=== PATIENT | female | born 1980 | race Two or more races ===

== ENCOUNTER 2024-08-02 13:00 | Outpatient (RCR) | payer MEDICAID, SELFPAY ==
--- NOTE | 2024-07-25 15:14 | PTNOTE_ITS ---
PT OP Initial Eval Patient Information Outpatient Physical Therapy Treatment Date: 07/25/24 Visit Reasons: Pain in left knee Medical Diagnosis: Left Knee Pain Treatment Dx #1: Left Knee Pain Start of Care: 07/25/24 Smoking Status Smoking Status: Never smoker Initial Assessment Subjective: Pt is a 43 y/o female reports of chronic right knee pain (03/15) with popping and locking. Pt mention her xray showed arthritis no MRI has been done thus far. Pt has limitation with walking, standing, chores, work duties, and performing recreational activities. Objective: Right Knee AROM: 0 deg to 120 deg with pain Right Knee MMTs: grossly 3+/5 Right Hip MMTs: grossly 3/5 Special Test (+) Lillian Assessment: Pt demonstrate right knee pain with mobility deficits leading to difficulty with ADLs. Pt will attempt physical therapy if pain persist Pt will be refer back to provider for further consultation. Short Term and Intermediate Goals 1) Increase right knee AROM WNL in 6 wks to be able to perform chores 2) Decrease knee pain to 2/10 in 6 wks to be able to perform squatting activities 3) Increase right knee MMTs grossly to 4/5 in 6 wks to be able to perform recreational activities 4) Increase right hip MMTs grossly to 4-/5 in 6 wks to be able to walk more than 30 mins 5) Indep with HEP Treatment Plan 1) Manual Therapy 2) Therapeutic Activities 3) Therapeutic Exercises 4) Modalities (ice, heat) 5) Balance Training Frequency and Duration: 2 x wk for 6 wks Certification Dates: 07/25/24 to 10/25/24 Procedure Charges OP PT Eval Mod Complex 30 minutes: Yes
--- NOTE | 2024-08-02 14:08 | PT.ODAYNRPT ---
PT Outpatient Daily Note OP Daily Note Outpatient Physical Therapy Treatment Date: 08/02/24 Visit Reasons: Pain in left knee Subjective: Pt's knee is a little better. Pt does not have any concerns. Objective: Please see flow chart for list of ther ex performed Assessment: cue to pace with exercises to decrease fatigue and knee pain. Pt tolerate all exercises performed Plan: Continue with PT Length of Time (minutes) of Treatment: 30 Minutes Procedure Charges Therapeutic Exercise 30 minutes: Yes
== END 2024-08-05 23:59 | disposition home or self-care (01) ==
LOC: CPTX 13:00
PROVIDERS: PCP Nurse Practitioner Family; Referring Provider Nurse Practitioner Family; Visit Provider Nurse Practitioner Family
DX: M25.562 Pain in left knee (principal); G89.29 Other chronic pain; R26.2 Difficulty in walking, not elsewhere classified; M17.12 Unilateral primary osteoarthritis, left knee
CPT/HCPCS: 97110; 97162

== ENCOUNTER 2024-08-28 10:30 | Outpatient (RCR) | payer MEDICAID, SELFPAY ==
--- NOTE | 2024-08-07 14:46 | PT.ODAYNRPT ---
PT Outpatient Daily Note OP Daily Note Outpatient Physical Therapy Treatment Date: 08/07/24 Visit Reasons: Pain in left knee Subjective: Pt reports L knee is doing ok. Objective: Please see flow sheet for ther ex list. Assessment: Pt tolerated TG squat machine exercise with no knee pain. Plan: Continue with POC. Length of Time (minutes) of Treatment: 30 Minutes Procedure Charges Therapeutic Exercise 30 minutes: Yes
--- NOTE | 2024-08-14 14:53 | PT.ODAYNRPT ---
PT Outpatient Daily Note OP Daily Note Outpatient Physical Therapy Treatment Date: 08/14/24 Visit Reasons: Pain in left knee Subjective: Pt's knee feels better but today it's stiff due to being out in the cold ~ 4 hrs. Objective: Please see flow chart for list of ther ex performed Assessment: progressing with exercise program and added resistance to hip exercises with good tolerance Plan: Continue with PT Length of Time (minutes) of Treatment: 30 Minutes Procedure Charges Therapeutic Exercise 30 minutes: Yes
--- NOTE | 2024-08-21 14:29 | PT.ODAYNRPT ---
PT Outpatient Daily Note OP Daily Note Outpatient Physical Therapy Treatment Date: 08/21/24 Visit Reasons: Pain in left knee Subjective: Pt mention her arthritis is kicking in today and knee hurts. Objective: Please see flow chart for list of ther ex performed Assessment: tolerate exercises with minimal increase in pain Plan: Continue with PT Length of Time (minutes) of Treatment: 30 Minutes Procedure Charges Therapeutic Exercise 30 minutes: Yes
--- NOTE | 2024-08-28 10:43 | PT.ODAYNRPT ---
PT Outpatient Daily Note OP Daily Note Outpatient Physical Therapy Treatment Date: 08/28/24 Visit Reasons: Pain in left knee Subjective: Pt's knee is a little better no new concerns. Objective: Please see flow chart for list of ther ex performed Assessment: tolerate exercises with minimal pain Plan: Continue with PT Length of Time (minutes) of Treatment: 30 Minutes Procedure Charges Therapeutic Exercise 30 minutes: Yes
== END 2024-09-05 23:59 | disposition home or self-care (01) ==
LOC: CPTX 10:30
PROVIDERS: PCP Nurse Practitioner Family; Referring Provider Nurse Practitioner Family; Visit Provider Nurse Practitioner Family
DX: M25.562 Pain in left knee (principal); R26.2 Difficulty in walking, not elsewhere classified; G89.29 Other chronic pain
CPT/HCPCS: 97110

== ENCOUNTER 2024-10-05 14:00 | Outpatient (RCR) | payer MEDICAID, SELFPAY ==
--- NOTE | 2024-10-02 14:33 | PT.ODAYNRPT ---
PT Outpatient Daily Note OP Daily Note Outpatient Physical Therapy Treatment Date: 10/02/24 Visit Reasons: RIGHT KNEE PAIN Subjective: Pt reports knee continues to hurt, c/o swelling today. Objective: Please see flow sheet for ther ex list. Assessment: Interventions completed with minimal pain and soreness. Plan: Continue with POC. Length of Time (minutes) of Treatment: 30 Minutes Procedure Charges Therapeutic Exercise 30 minutes: Yes
--- NOTE | 2024-10-05 14:27 | PT.ODAYNRPT ---
PT Outpatient Daily Note OP Daily Note Outpatient Physical Therapy Treatment Date: 10/05/24 Visit Reasons: RIGHT KNEE PAIN Subjective: Pt's knee is hurting more. Pt has more difficulty putting weight through the leg in standing. Objective: Please see flow chart for list of ther ex performed Assessment: tolerate exercises performed today; cues to pace throughout PT session to decrease knee pain Plan: Continue with PT Length of Time (minutes) of Treatment: 30 Minutes Procedure Charges Therapeutic Exercise 30 minutes: Yes
== END 2024-10-06 23:59 | disposition home or self-care (01) ==
LOC: CPTX 14:00
PROVIDERS: PCP Nurse Practitioner Family; Referring Provider Nurse Practitioner Family; Visit Provider Nurse Practitioner Family
DX: M25.562 Pain in left knee (principal); R26.2 Difficulty in walking, not elsewhere classified; G89.29 Other chronic pain
CPT/HCPCS: 97110

== ENCOUNTER 2024-10-25 14:00 | Outpatient (RCR) | payer MEDICAID, SELFPAY ==
--- NOTE | 2024-10-10 14:23 | PT.ODAYNRPT ---
PT Outpatient Daily Note OP Daily Note Outpatient Physical Therapy Treatment Date: 10/10/24 Visit Reasons: left knee pain Subjective: Pt reports L knee is hurting today more than usual and feels knee is swollen. Objective: Please see flow sheet for ther ex list. Assessment: Regressed interventions to accommodate reported pain. Pt encouraged to apply cold pack at home, pt agreed. Plan: Continue with POC. Length of Time (minutes) of Treatment: 30 Minutes Procedure Charges Therapeutic Exercise 30 minutes: Yes
--- NOTE | 2024-10-12 14:40 | PT.ODAYNRPT ---
PT Outpatient Daily Note OP Daily Note Outpatient Physical Therapy Treatment Date: 10/12/24 Visit Reasons: left knee pain Subjective: Pt reports L knee continues to be painful and swollen, no pain to report. Objective: Please see flow sheet for ther ex list Assessment: Intervention progression slow due to pt pain response. Plan: Continue with POC. Length of Time (minutes) of Treatment: 30 Minutes Procedure Charges Therapeutic Exercise 30 minutes: Yes
--- NOTE | 2024-10-17 14:21 | PT.ODAYNRPT ---
PT Outpatient Daily Note OP Daily Note Outpatient Physical Therapy Treatment Date: 10/17/24 Visit Reasons: left knee pain Subjective: Pt c/o L knee pain, does not feel progress at this time. Objective: Please see flow sheet for ther ex list. Assessment: Pt continues to report moderate knee pain delaying intervention progression. Plan: Continue with pOC. Length of Time (minutes) of Treatment: 30 Minutes Procedure Charges Therapeutic Exercise 30 minutes: Yes
--- NOTE | 2024-10-19 14:25 | PT.ODAYNRPT ---
PT Outpatient Daily Note OP Daily Note Outpatient Physical Therapy Treatment Date: 10/19/24 Visit Reasons: left knee pain Subjective: Pt reports L knee is doing better today, received injections yesterday on B knees. Objective: Please see flow sheet for ther ex list. Assessment: Pt demonstrates improved tolerance with interventions today as a result of decrease pain. Plan: Continue with poC. Length of Time (minutes) of Treatment: 30 Minutes Procedure Charges Therapeutic Exercise 30 minutes: Yes
--- NOTE | 2024-10-25 14:36 | PT.ODAYNRPT ---
PT Outpatient Daily Note OP Daily Note Outpatient Physical Therapy Treatment Date: 10/25/24 Visit Reasons: left knee pain Subjective: Pt reports she continues to have on/off pain on her L knee. Pt shared she is scheduled for an MRI next week and would like next PT session to be her last. Objective: Please see flow sheet for ther ex list. Assessment: Pt c/o knee pain delaying intervention progression. Plan: Continue with POC. Length of Time (minutes) of Treatment: 30 Minutes Procedure Charges Therapeutic Exercise 30 minutes: Yes
--- NOTE | 2024-10-27 13:47 | PT.ODS1RPT ---
PT OP Progress/Discharge Note Date of Service: 10/27/24 Progress Note/DC Note Progress Note/Discharge Note: DC Note Patient Information Visit Reasons: left knee pain Service Discharge Date: 10/27/24 Status Assessment: Pt has been seen for 13 visits (eval + 12 visits). Pt last treated on 10/25/24 and will like to stopped physical therapy due to continued knee pain. Pt did not meet set goals in therapy; thank you for your referrals.
== END 2024-11-03 23:59 | disposition home or self-care (01) ==
LOC: CPTX 14:00
PROVIDERS: PCP Nurse Practitioner Family; Referring Provider Nurse Practitioner Family; Visit Provider Nurse Practitioner Family
DX: M25.562 Pain in left knee (principal); R26.2 Difficulty in walking, not elsewhere classified; G89.29 Other chronic pain
CPT/HCPCS: 97110

== ENCOUNTER → 2024-11-06 | Outpatient (CLI) | payer MEDICAID, SELFPAY ==
--- NOTE | 2024-11-06 14:41 | XR_ITS ---
Examination: Foot, right, 3 views Technique: AP, oblique, lateral views foot, 3 views Date and time of exam: November 06, 2024 1448 hours INDICATIONS: Right foot pain after injury one month ago FINDINGS: No acute fracture No dislocation No foreign body IMPRESSION: No acute fracture
== END | disposition home or self-care (01) ==
PROVIDERS: PCP Nurse Practitioner Family; Referring Provider Nurse Practitioner Family; Visit Provider Nurse Practitioner Family
DX: M79.671 Pain in right foot (principal)
CPT/HCPCS: 73630

== ENCOUNTER 2024-12-16 21:11 | Emergency (ER) | payer MEDICAID, SELFPAY ==
[2024-12-16 21:12] VITALS: BMI 39.4
--- NOTE | 2024-12-16 21:16 | EKG_ITS ---
[facility] Test Date: 2024-12-16 Pat Name: BJORN BOOTH Department: Room: - Gender: Female Client Care Consultant: : 1980 Requested By: ED Temporary Provider Order Number: [id number] Reading MD: ED Temporary Provider Measurements Intervals [place] Rate: 79 P: 23 GA: 158 QRS: 37 QRSD: 83 T: 8 QT: 355 QTc: 409 Interpretive Statements SINUS RHYTHM NONSPECIFIC T-WAVE ABNORMALITY No previous ECG available for comparison /store/S0/[id number].pdf
[2024-12-16 21:19] VITALS: BP 113/75; PULSE 84; RESP 19; TEMP 36.6; O2SAT 99
--- NOTE | 2024-12-16 21:19 | XR_ITS ---
Examination: PA lateral chest 2 views Technique: Upright PA lateral chest 2 views Exam date and time: December 16, 2024 2130 hrs. Comparison February 28, 2006 Indications: Tachycardia chest pain beginning 2 weeks ago. Findings: Mild prominence left ventricle No pneumonia or pulmonary edema Old fracture right clavicle Impression: Mild prominence left ventricle No pneumonia or pulmonary edema
--- NOTE | 2024-12-16 21:22 | PD.EDRME ---
Rapid Medical Screening Exam RME Arrival date/time: 12/16/24 21:11 44 yo f present to ED for c/o rapid hr for 2 weeks I have greeted and performed a focused initial assessment of this patient. A comprehensive ED assessment and evaluation of the patient, analysis of all test results, and completion of the medical decision making process will be conducted by additional ED providers. Chief Complaint: Arrhythmia/Palpitations Vital signs: Vital Signs Temperature 98 F 12/16/24 21:19 Pulse Rate 84 12/16/24 21:19 Respiratory Rate 19 12/16/24 21:19 Blood Pressure 113/75 12/16/24 21:19 Pulse Oximetry (%) 99 12/16/24 21:19 Oxygen Delivery Method Room Air 12/16/24 21:19
[2024-12-16 21:42] LABS: Basophils % (Auto) 0 % (0-2.5); Eosinophils # (Auto) 0.1 Thou/mm3 (0.0-0.5); Eosinophils % (Auto) 1 % (0-10); Hematocrit 44.5 % (36.0-46.0); Hemoglobin 14.6 g/dL (12.0-16.0); Immature Granulocytes % (Auto) 0 % (0-0); Immature Granulocytes Auto 0.04 Thou/mm3 (0.00-0.00); Lymphocytes # (Auto) 2.5 Thou/mm3 (1.0-4.8); Lymphocytes % (Auto) 20 % (10-50); Mean Corpuscular HGB Conc 32.8 g/dl (31.0-37.0); Mean Corpuscular Hemoglobin 32.6 pg (25.0-35.0); Mean Corpuscular Volume 99 fL (80-100); Monocytes # (Auto) 0.8 Thou/mm3 (0.0-0.8); Monocytes % (Auto) 6 % (0-12); Neutrophils # (Auto) 9.1 Thou/mm3 (1.8-7.7); Neutrophils % (Auto) 72 % (37-80); Nucleated Red Blood Cell % 0 /100 WBC (0); Platelet Count 312 Thou/mm3 (140-440); RDW Standard Deviation 55.2 fL (36.4-46.3); Red Blood Count 4.48 Miln/mm3 (4.00-5.20); White Blood Count 12.7 Thou/mm3 (3.6-11.0)
[2024-12-16 22:11] LABS: HCG,Qualitative Serum Negative
[2024-12-16 22:12] LABS: Alanine Aminotransferase 18 U/L (10-49); Albumin, Serum 4.6 gm/dL (3.5-5.0); Albumin/Globulin Ratio 1.8 (1.2-2.2); Alkaline Phosphatase 62 U/L (46-116); Anion Gap 9 (7-16); Aspartate Amino Transferase 15 U/L (0-34); BUN/Creatinine Ratio 15 Ratio (12-20); Bilirubin,Total 0.7 mg/dL (0.3-1.2); Blood Urea Nitrogen 12 mg/dL (9-23); Calcium 9.3 mg/dL (8.3-10.6); Calcium (Corrected) 9.3 mg/dL (8.5-10.1); Carbon Dioxide 26.2 mMol/L (20.0-31.0); Chloride 110 mMol/L (98-107); Creatinine (Component) 0.8 mg/dL (0.6-1.3); Estimated Creatinine Clearance 105.6 mL/min (>60); Globulin 2.5 gm/dL (2.3-3.5); Glucose 111 mg/dL (74-106); Magnesium 2.3 mg/dL (1.6-2.6); Osmolality,Calculated 289 (275-295); Potassium 3.7 mMol/L (3.4-5.1); Sodium 145 mMol/L (136-145); Total Protein 7.1 gm/dL (5.7-8.2); Troponin I < 0.002 ng/mL (0.0-0.045); eGFR > 60 See Note
[2024-12-16 22:13] LABS: Thyroid Stimulating Hormone 2.05 uIU/mL (0.55-4.78)
[2024-12-17] VITALS: BP 130/88; PULSE 76; RESP 18; O2SAT 100
--- NOTE | 2024-12-17 00:05 | PC.NURSE ---
Initial contact with pt. Awake no distress noted. Denies any chest discomfort at this time. Pt stated of and on having palpitation for about 2 wks. C. monitor shows NSR without ventricular ectopy noted.
--- NOTE | 2024-12-17 00:55 | EDNOTE_ITS ---
ED Arrhythmia Palp. RME/HPI General Chief Complaint: Arrhythmia/Palpitations Stated Complaint: palpitations Time Seen by Provider: 12/16/24 21:27 Arrival date/time: 12/16/24 21:11 Limitations: no limitations RME / HPI RME / HPI narrative: 12/16/24 21:11 44 yo f present to ED for c/o rapid hr for 2 weeks I have greeted and performed a focused initial assessment of this patient. A comprehensive ED assessment and evaluation of the patient, analysis of all test results, and completion of the medical decision making process will be conducted by additional ED providers. -------- Dr. Goyal's Main ED Evaluation: 44yo female presents to the ED for a chief complaint of palpitations. Patient states she was having palpitations and sharp chest pain today. She states she has been on Zepbound for the last 6 months and has lost 30 pounds. She endorses associated tingling everywhere. She denies any fever, chills, N/V, numbness or any other associated symptoms. Related Data Home Medications ?Medication ?Instructions ?Recorded ?Confirmed albuterol sulfate 90 mcg/actuation 2 puff inhalation Q 4H PRN 08/26/23 02/18/24 aerosol inhaler cetirizine 10 mg tablet 10 mg PO QDAY 08/26/2302/17 fluticasone propionate 50 2 inh inhalation QDAY 02/18/24 mcg/actuation blister powder for inhalation levothyroxine 75 mcg capsule 75 mcg PO QDAY 08/26/23 0 02/18/24 atorvastatin 10 mg tablet 10 mg PO QDAY 02/18/2402/17 oxybutynin chloride 10 mg 10 mg PO QDAY 02/18/2402/17 tablet,extended release 24 hr Previous Rx's ?Medication ?Instructions ?Recorded ibuprofen 800 mg tablet 800 mg PO TID PRN pain #30 t abs 02/16/24 loperamide 2 mg capsule (Imodium 2 mg PO Q6H PRN loose stool #14 02/16/24 A-D) caps ondansetron 4 mg disintegrating 4 mg PO Q8H PRN nausea and 02/16/24 tablet vomiting #10 tabs Allergies Allergy/AdvReac Type Severity Reaction Status Date / Time No Known Allergies Allergy Verified 12/16/24 21:15 Review of Systems Review of Systems Systems Reviewed: All systems reviewed, normal except as documented Past Medical History Past Medical History NEUROLOGIC: Negative Neurological Disorders CARDIAC: Negative Cardiac Disorders or Congestive Heart Failure RESPIRATORY: Negative Chronic Obstructive Pulmonary Disease (COPD) GENITOURINARY: Negative Renal Disease ENDOCRINE: Negative Diabetes Mellitus Type 1 or Diabetes Mellitus Type 2 Social History SMOKING STATUS: Never smoker ED Exam General Limitations: Present no limitations General appearance: Present alert and in no apparent distress Head Head exam: Present atraumatic Eye Eye exam: Present normal appearance, PERRL and EOMI ENT ENT exam: Present normal exam, normal oropharynx and mucous membranes moist Neck Neck exam: Present normal inspection, full ROM and trachea midline Chest Chest inspection: Present normal inspection and symmetric chest wall rise Respiratory Respiratory exam: Present normal lung sounds bilaterally Cardiovascular Cardiovascular exam: Present regular rate, normal rhythm and normal heart sounds Abdominal Exam Abdominal exam: Present soft and normal bowel sounds Extremities Exam Extremities exam: Present normal inspection and full ROM Back Exam Back exam: Present normal inspection and full ROM Neurological Exam Neurological exam: Present alert, oriented X3, CN II-XII intact and other (normal netsuite consultant bilaterally) Expanded Neurological Exam Cerebellar function: Normal: finger to nose Psychiatric Psychiatric exam: Present normal affect and normal mood Skin Skin exam: Present warm, dry, intact and normal color Course Course Course Narrative: CXR is ordered for determining the etiology of palpitations. Quality Measures none Orders Category Date Time Status EKG (ED ONLY) *Do not use* NOW Care 12/16/24 21:16 Completed EKG (ED Only) Stat Exams 12/16/24 21:16 Draft XR chest 2V Stat Exams 12/16/24 21:19 Completed CBC Stat Lab 12/16/24 21:27 Completed CMP [Comprehensive Metabolic Panel] Stat Lab 12/16/24 21:27 Completed HCG,Qualitative Serum Stat Lab 12/16/24 21:27 Completed Mag [Magnesium] Stat Lab 12/16/24 21:27 Completed TSH [Thyroid Stimulating Hormone] Stat Lab 12/16/24 21:27 Completed Troponin I Stat Lab 12/16/24 21:27 Completed Vital Signs Vital signs: Vital Signs Temperature 98 F 12/16/24 21:19 Pulse Rate 84 12/16/24 21:19 Respiratory Rate 19 12/16/24 21:19 Blood Pressure 113/75 12/16/24 21:19 Pulse Oximetry (%) 99 12/16/24 21:19 Oxygen Delivery Method Room Air 12/16/24 21:19 Arrhythmia/Palpitations MDM Narrative MDM Narrative:: Scribe Attestation: 12/16/24 - Elsa Finley am scribing for and in the presence of Dr. Goyal. Patient data External records reviewed:: [facility] previous records (Per chart review, patient has no previous ED visits.) Clinical information provided by:: patient Social determinants that could affect healthcare access:: none Patient has the following chronic illnesses:: none How is presenting disease/condition affected by chronic disease/condition?: no chronic disease Evaluation data The following diagnostics were reviewed and interpreted by me:: lab results, radiology exam(s) and EKG tracing(s) Lab and/or radiology exams considered but not ordered:: none Interpretation Summary: WBC count is 12.7, CMP is normal, Magnesium is normal, Troponin is normal, TSH is normal, HCG is negative, according to my interpretation. EKG done at 2123. NSR, rate of 79, normal intervals, normal axis, no acute ST or T wave changes, no STEMI, according to my interpretation. [facility] Report Signed Patient: BJORN BOOTH Record#: [id number] Birthdate: 1980 Age/Sex: 44 / F Location: [facility] [place] Attending Dr: Ordering Physician: Galindo Richard PA-C Date of Service: 12/16/24 Procedure(s): XR chest 2V Accession Number(s): [id number] cc: Watson Barros MD; NO PRIMARY/FAMILY,PHYSICIAN; Galindo Richard PA-C~ Examination: PA lateral chest 2 views Technique: Upright PA lateral chest 2 views Exam date and time: December 16, 2024 2130 hrs. Comparison February 28, 2006 Indications: Tachycardia chest pain beginning 2 weeks ago. Findings: Mild prominence left ventricle No pneumonia or pulmonary edema Old fracture right clavicle Impression: Mild prominence left ventricle No pneumonia or pulmonary edema Dictated By: Watson Barros MD Signed By: <Electronically signed by Watson Barros MD in OV> 12/16/247 Medications / Prescriptions Medications or Prescriptions considered but not ordered:: none Medication administrations:: see above Consultations Consultation(s) initiated? (list below): No Diagnosis Differential diagnosis arrhythmia/palpitations: palpitations, anxiety, sinus tachycardia and other (dehydration, electrolyte abnormality, medication side effect) Most likely diagnosis given after review of the tests above:: see clinical impression below Admission Indicated Admission indicated?: not indicated Admission Request Was there a request for admission?: No Disposition Plan Disposition Plan: Discharge Discharge Attestation Discharge Attestation: The patient and all family members were given an opportunity to ask questions and understood the discharge instructions. Discharge instructions specifically effects, indications for sooner follow up or return to the emergency department, and the expected course of current diagnosis. Patient condition: Stable Discharge Plan Plan Patient Disposition: HOME (Self Care) Patient condition on transfer: Stable Prescriptions/Referrals Prescriptions/Med Rec: No Action atorvastatin 10 mg tablet 10 mg PO QDAY oxybutynin chloride 10 mg tablet extended release 24hr 10 mg PO QDAY albuterol sulfate 90 mcg/actuation HFA aerosol inhaler 2 puff inhalation Q4H PRN fluticasone propionate 50 mcg/actuation blister with device 2 inh inhalation QDAY cetirizine 10 mg tablet 10 mg PO QDAY levothyroxine 75 mcg capsule 75 mcg PO QDAY loperamide [Imodium A-D] 2 mg capsule 2 mg PO Q6H PRN (Reason: loose stool) Qty: 14 0RF ibuprofen 800 mg tablet 800 mg PO TID PRN (Reason: pain) Qty: 30 0RF ondansetron 4 mg tablet,disintegrating 4 mg PO Q8H PRN (Reason: nausea and vomiting) Qty: 10 0RF Referrals: No Primary/Family,Physician [Primary Care Provider] - In 1 week Problem List Clinical Impression: Palpitations Patient/Caregiver Discharge Instructions Education Materials: ED Palpitations Additional Instructions: Return to the ED for worsening symptoms or any other concerns. Take [id number] vitamins in case you are not getting enough nutrition since you are on the weight loss drug. Please see your primary care in the next 48 to 72 hours. Print Language: Kyrgyz Stand Alone Forms: Monae Award Info., Patient Portal Info Letter
[2024-12-17 01:34] VITALS: BP 109/83; PULSE 74; RESP 18; TEMP 36.6; O2SAT 100
== END 2024-12-17 01:45 | disposition home or self-care (01) ==
PROVIDERS: Physician Assistant; Emergency Provider Emergency Medicine
DX: I51.7 Cardiomegaly (principal)
CPT/HCPCS: 36415; 71046; 80053; 83735; 84443; 84484; 84703; 85025; 93005; 99283

== ENCOUNTER → 2025-01-05 | Outpatient (CLI) | payer MEDICAID, SELFPAY ==
--- NOTE | 2025-01-05 14:09 | XR_ITS ---
Examination: Carotid arterial duplex scan, ultrasound. Date and time of exam: January 05, 2025 1423 hours INDICATIONS: Episodes of dizziness facial weakness left-sided body weakness beginning 2 months ago, transient ischemic attacks Technique: Multiple sonographic images have been obtained of the carotid arteries and vertebral arteries, B-mode/grayscale imaging and Doppler spectral analysis and color flow Peak systolic and diastolic velocities have been recorded. Systolic diastolic ratios have been calculated. Findings: Right peak systolic velocities: Distal internal carotid artery peak systolic velocity is 0.7 M/sec Proximal internal carotid artery peak systolic velocity is 0.5 M/sec Carotid bifurcation peak systolic velocity is 0.8 M/sec External carotid artery peak systolic velocity is 0.8 M/sec Vertebral artery flow is antegrade. Left peak systolic velocities: Distal internal carotid artery peak systolic velocity is 1.0 M/sec Proximal internal carotid artery peak systolic velocity is 1.0 M/sec Carotid bifurcation peak systolic velocity is 0.7 M/sec External carotid artery peak systolic velocity is 0.7 M/sec Vertebral artery flow is antegrade Doppler waveform analysis demonstrates no spectral broadening Impression: Right internal carotid artery demonstrates 0-10% stenosis. Left internal carotid artery demonstrates 0-10% stenosis.
== END | disposition home or self-care (01) ==
LOC: CDIM 14:01
PROVIDERS: PCP Nurse Practitioner Family; Referring Provider Nurse Practitioner Family; Visit Provider Nurse Practitioner Family
DX: R42 Dizziness and giddiness (principal)
CPT/HCPCS: 93880

== ENCOUNTER → 2025-02-16 | Outpatient (BNVA) | payer MEDICAID, SELFPAY | END | disposition home or self-care (01) | PROVIDERS: PCP Nurse Practitioner Family; Referring Provider Nurse Practitioner Family; Visit Provider Urology | DX: N39.46 Mixed incontinence (principal); N32.81 Overactive bladder; E03.9 Hypothyroidism, unspecified; F31.9 Bipolar disorder, unspecified; J45.909 Unspecified asthma, uncomplicated; E78.5 Hyperlipidemia, unspecified; R73.03 Prediabetes; E66.9 Obesity, unspecified; Z68.38 Body mass index [BMI] 38.0-38.9, adult | CPT/HCPCS: 81003; 99212; G0463 ==

== ENCOUNTER 2025-03-19 18:19 | Emergency (ER) | payer MEDICAID, SELFPAY ==
[2025-03-19 18:37] VITALS: BP 148/80; PULSE 73; RESP 19; TEMP 37; O2SAT 98; BMI 37.5
--- NOTE | 2025-03-19 19:41 | EKG_ITS ---
[facility] Test Date: 2025-03-19 Pat Name: BJORN BOOTH Department: Room: - Gender: Female Transportation Technician: : 1980 Requested By: Anish Rodriguez Order Number: [id number] Reading MD: Anish Rodriguez Measurements Intervals [place] Rate: 66 P: 18 OK: 151 QRS: 43 QRSD: 90 T: 21 QT: 380 QTc: 398 Interpretive Statements SINUS RHYTHM NONSPECIFIC T-WAVE ABNORMALITY Compared to ECG 12/16/2024 21:24:31 No significant changes /store/S0/[id number]/[id number].pdf
--- NOTE | 2025-03-19 19:43 | XR_ITS ---
Examination: PA chest single view TECHNIQUE: upright PA chest single view Date and time: March 19, 2025, 194 hours INDICATION: Chest pain 6 months FINDINGS: Minimal prominence left ventricle. No pneumonia or pulmonary edema. Old fracture right clavicle IMPRESSION: No active disease.
[2025-03-19 20:55] LABS: Basophils # (Auto) 0.0 Thou/mm3 (0.0-0.2); Basophils % (Auto) 0 % (0-2.5); Eosinophils # (Auto) 0.3 Thou/mm3 (0.0-0.5); Eosinophils % (Auto) 3 % (0-10); Hematocrit 42.2 % (36.0-46.0); Hemoglobin 13.8 g/dL (12.0-16.0); Immature Granulocytes Auto 0.02 Thou/mm3 (0.00-0.00); Lymphocytes # (Auto) 2.6 Thou/mm3 (1.0-4.8); Lymphocytes % (Auto) 24 % (10-50); Mean Corpuscular HGB Conc 32.7 g/dl (31.0-37.0); Mean Corpuscular Hemoglobin 32.9 pg (25.0-35.0); Mean Corpuscular Volume 101 fL (80-100); Monocytes # (Auto) 0.6 Thou/mm3 (0.0-0.8); Monocytes % (Auto) 6 % (0-12); Neutrophils # (Auto) 7.2 Thou/mm3 (1.8-7.7); Neutrophils % (Auto) 67 % (37-80); Nucleated Red Blood Cell # 0.00 Thou/mm3 (0.00-0.00); Nucleated Red Blood Cell % 0 /100 WBC (0); Platelet Count 221 Thou/mm3 (140-440); RDW Standard Deviation 49.9 fL (36.4-46.3); Red Blood Count 4.20 Miln/mm3 (4.00-5.20); White Blood Count 10.7 Thou/mm3 (3.6-11.0)
[2025-03-19 21:17] LABS: Collection Type, Urine Voided
[2025-03-19 21:18] LABS: B-Type Natriuretic Peptide 36 pg/mL (0-100)
[2025-03-19 21:23] LABS: Alanine Aminotransferase 15 U/L (10-49); Albumin, Serum 4.4 gm/dL (3.5-5.0); Albumin/Globulin Ratio 1.8 (1.2-2.2); Alkaline Phosphatase 70 U/L (46-116); Anion Gap 11 (7-16); Aspartate Amino Transferase 17 U/L (0-34); BUN/Creatinine Ratio 9 Ratio (12-20); Bilirubin,Total 0.5 mg/dL (0.3-1.2); Blood Urea Nitrogen 7 mg/dL (9-23); Calcium 9.2 mg/dL (8.3-10.6); Calcium (Corrected) 9.2 mg/dL (8.5-10.1); Carbon Dioxide 23.8 mMol/L (20.0-31.0); Chloride 107 mMol/L (98-107); Creatinine (Component) 0.8 mg/dL (0.6-1.3); Estimated Creatinine Clearance 102.8 mL/min (>60); Globulin 2.5 gm/dL (2.3-3.5); Glucose 102 mg/dL (74-106); Osmolality,Calculated 281 (275-295); Potassium 3.8 mMol/L (3.4-5.1); Sodium 142 mMol/L (136-145); Thyroid Stimulating Hormone 3.18 uIU/mL (0.55-4.78); Total Protein 6.9 gm/dL (5.7-8.2); Troponin I < 0.002 ng/mL (0.0-0.045); eGFR > 60 See Note
[2025-03-19 21:34] LABS: Bacteria,Urine 1+; Bilirubin,Urine Negative (Negative); Blood,Urine Trace (Negative); Clarity,Urine Turbid (Clear/Hazy); Color,Urine Yellow (Lt Yel-Yel); Glucose, Urine Negative (Negative); Hyaline Casts,Urine < 1 /hpf (0-1); Ketones,Urine Trace (Negative); Leukocyte Esterase,Urine Positive (Negative); Nitrite,Urine Negative (Negative); PH,Urine 6.0 (5.0-7.0); Protein,Urine 1+ (Neg - Trace); RBC,Urine 8 /hpf (0-3); Specific Gravity,Urine 1.032 (1.001-1.035); Squamous Epithelial Cell,Urine 13 /hpf (0-5); Urobilinogen,Urine 2.0 mg/dL (0.0-1.0); WBC,Urine 20 /hpf (0-5)
[2025-03-19 21:35] LABS: HCG Qualitative,Urine Negative
--- NOTE | 2025-03-19 22:00 | PD.EDARRY ---
ED Arrhythmia Palp. RME/HPI General Chief Complaint: Arrhythmia/Palpitations Stated Complaint: DO X 2 days, palpitations today Time Seen by Provider: 03/19/25 18:31 Arrival date/time: 03/19/25 18:19 This is a case of a 44-year-old female with history of palpitation came in in the emergency room with chest pain and palpitation today with mild frontal headache patient states that she was in the clinic to have Toradol injection for his lower back pain when they checked the heart rate it was high and started to have chest pain and some frontal headache patient denies any shortness of breath denies any other symptoms denies any numbness weakness tingling sensation denies blurring of vision persistence of the symptoms this patient decided to sought consult here in the emergency room Limitations: no limitations Related Data Home Medications ?Medication ?Instructions ?Recorded ?Confirmed albuterol sulfate 90 mcg/actuation 2 puff inhalation Q4H PRN 08/26/23 02/16/25 aerosol inhaler cetirizine 10 mg tablet 10 mg PO QDAY 08/26/23 02/16/25 fluticasone propionate 50 2 inh inhalation QDAY 08/26/23 02/16/25 mcg/actuation blister powder for inhalation levothyroxine 75 mcg capsule 75 mcg PO QDAY 08/26/23 02/16/25 atorvastatin 10 mg tablet 10 mg PO QDAY 02/18/24 02/16/25 oxybutynin chloride 10 mg 10 mg PO QDAY 02/18/24 02/16/25 tablet,extended release 24 hr acetaminophen 500 mg capsule 500 mg PO BID PRN 02/16/25 02/16/25 lithium carbonate 600 mg capsule 1,200 mg PO QDAY 02/16/25 02/16/25 trazodone 50 mg tablet 50 mg PO BID 02/16/25 02/16/25 Previous Rx's ?Medication ?Instructions ?Recorded cephalexin 500 mg capsule 500 mg PO QID 10 days #40 caps 03/19/25 Allergies Allergy/AdvReac Type Severity Reaction Status Date / Time No Known Allergies Allergy Verified 03/19/25 18:25 Review of Systems Review of Systems Systems Reviewed: All systems reviewed, normal except as documented Constitutional Constitutional: Reports system reviewed and no additional complaints, except as documented and Reports as per HPI Cardiovascular Cardiovascular: Reports system reviewed and no additional complaints, except as documented, Denies chest pain and Denies dyspnea Respiratory Respiratory: Reports system reviewed and no additional complaints, except as documented, Reports as per HPI and Denies dyspnea Gastrointestinal Gastrointestinal: Reports system reviewed and no additional complaints, except as documented and Reports as per HPI Neurologic Neurologic: Reports as per HPI Past Medical History Past Medical History NEUROLOGIC: Negative Neurological Disorders CARDIAC: Negative Cardiac Disorders or Congestive Heart Failure RESPIRATORY: Negative Chronic Obstructive Pulmonary Disease (COPD) GENITOURINARY: Negative Renal Disease ENDOCRINE: Negative Diabetes Mellitus Type 1 or Diabetes Mellitus Type 2 Social History SMOKING STATUS: Never smoker ED Exam General Limitations: Present no limitations General appearance: Present alert, in no apparent distress and other (Awake alert oriented not in distress nontoxic looking) Head Head exam: Present atraumatic, normocephalic and normal inspection Eye Eye exam: Present normal appearance, PERRL and EOMI ENT ENT exam: Present normal exam, normal oropharynx and mucous membranes moist Neck Neck exam: Present normal inspection, full ROM and trachea midline Chest Chest inspection: Present normal inspection and symmetric chest wall rise Respiratory Respiratory exam: Present normal lung sounds bilaterally; Absent respiratory distress, wheezes, stridor, accessory muscle use or prolonged expiratory phase Cardiovascular Cardiovascular exam: Present regular rate, normal rhythm and normal heart sounds; Absent bradycardia, tachycardia, irregular rhythm, systolic murmur or diastolic murmur Abdominal Exam Abdominal exam: Present soft and normal bowel sounds; Absent distention, tenderness, guarding, rebound, rigidity, diminished bowel sounds, hyperactive bowel sounds or hypoactive bowel sounds Extremities Exam Extremities exam: Present normal inspection and full ROM Back Exam Back exam: Present normal inspection and full ROM Neurological Exam Neurological exam: Present alert, oriented X3, CN II-XII intact, normal gait and reflexes normal; Absent motor sensory deficit Psychiatric Psychiatric exam: Present normal affect and normal mood Skin Skin exam: Present warm, dry, intact and normal color Course Quality Measures none Orders Category Date Time Status EKG (ED ONLY) *Do not use* NOW Care 03/19/25 19:42 Completed EKG (ED Only) Stat Exams 03/19/25 19:41 Draft XR chest 1V portable Stat Exams 03/19/25 19:43 Completed BNP [B-Type Natriuretic Peptide] Stat Lab 03/19/25 20:25 Completed CBC Stat Lab 03/19/25 20:25 Completed CMP [Comprehensive Metabolic Panel] Stat Lab 03/19/25 20:25 Completed HCG Qualitative,Urine Stat Lab 03/19/25 21:08 Completed TSH [Thyroid Stimulating Hormone] Stat Lab 03/19/25 20:25 Completed Troponin I Stat Lab 03/19/25 20:25 Completed Urinalysis Stat Lab 03/19/25 21:08 Completed Vital Signs Vital signs: Vital Signs Temperature 98.6 F 03/19/25 18:37 Pulse Rate 73 03/19/25 18:37 Respiratory Rate 19 03/19/25 18:37 Blood Pressure 148/80 H 03/19/25 18:37 Pulse Oximetry (%) 98 03/19/25 18:37 Oxygen Delivery Method Room Air 03/19/25 18:37 Patient is afebrile not tachycardic not tachypneic BP stable not hypoxic oxygen saturation is 98% in room air Arrhythmia/Palpitations MDM Narrative MDM Narrative:: This is a case of a 44-year-old female with history of palpitation came in in the emergency room with chest pain and palpitation today with mild frontal headache patient states that she was in the clinic to have Toradol injection for his lower back pain when they checked the heart rate it was high and started to have chest pain and some frontal headache patient denies any shortness of breath denies any other symptoms denies any numbness weakness tingling sensation denies blurring of vision persistence of the symptoms this patient decided to sought consult here in the emergency room physical examination patient is awake alert oriented not in distress nontoxic looking vital signs stable BP stable not tachycardic not tachypneic not hypoxic lungs sound is clear no crackles no rales no retraction no stridor heart normal rate regular rhythm no murmur abdomen soft no guarding no rebound no rigidity neurological exam is also normal blood test showed no leukocytosis no anemia kidney and liver function is normal no electrolyte imbalance troponin is negative BNP is negative EKG shows sinus rhythm 66 chest x-ray is normal urinalysis shows urinary tract infection this patient was treated with cephalexin for UTI patient will follow-up with PCP in 2 days for reevaluation and to be referred to vendor management specialist for further evaluation and treatment of chest pain and palpitation for any worsening symptoms recurrence persisting or any emergent concern return precaution was advised Patient was discharged with comfortable condition walking with stable gait. Patient verbalized no further complains explained diagnosis and answered patient question. Patient is comfortable with the proposed management plan including the need to follow up with his/her primary care physician and any specialist if applicable Discussed patient for any urgent condition or worsening sx, He/She needed to go to emergency room immediately or call 911. Patient acknowledge the responsibility to follow up as instructed and to monitor her/his symptoms. For any persistence of the symptoms for more than 3-5 days return precaution advised. Discussed the result of the test and was given printed discharge instruction Patient data External records reviewed:: [facility] previous records Clinical information provided by:: patient Social determinants that could affect healthcare access:: none Patient has the following chronic illnesses:: None How is presenting disease/condition affected by chronic disease/condition?: no chronic disease Evaluation data The following diagnostics were reviewed and interpreted by me:: lab results, radiology exam(s) and EKG tracing(s) Lab and/or radiology exams considered but not ordered:: Reviewed Interpretation Summary: Reviewed Medications / Prescriptions Medications or Prescriptions considered but not ordered:: Given Medication administrations:: Given Consultations Consultation(s) initiated? (list below): No Diagnosis Differential diagnosis arrhythmia/palpitations: palpitations, anxiety and sinus tachycardia Most likely diagnosis given after review of the tests above:: Palpitation Admission Indicated Admission indicated?: not indicated Explain why admission is indicated or not indicated:: Not indicated Admission Request Was there a request for admission?: No Admission Attestation Admission request attestation: Not indicated Disposition Plan Disposition Plan: Discharge Discharge Attestation Discharge Attestation: The patient and all family members were given an opportunity to ask questions and understood the discharge instructions. Discharge instructions specifically effects, indications for sooner follow up or return to the emergency department, and the expected course of current diagnosis. Patient condition: Stable Discharge Plan Plan Patient Disposition: HOME (Self Care) Patient condition on transfer: Stable Prescriptions/Referrals Prescriptions/Med Rec: New cephalexin 500 mg capsule 500 mg PO QID 10 Days Qty: 40 0RF No Action atorvastatin 10 mg tablet 10 mg PO QDAY oxybutynin chloride 10 mg tablet extended release 24hr 10 mg PO QDAY acetaminophen 500 mg capsule 500 mg PO BID PRN lithium carbonate 600 mg capsule 1,200 mg PO QDAY trazodone 50 mg tablet 50 mg PO BID albuterol sulfate 90 mcg/actuation HFA aerosol inhaler 2 puff inhalation Q4H PRN fluticasone propionate 50 mcg/actuation blister with device 2 inh inhalation QDAY cetirizine 10 mg tablet 10 mg PO QDAY levothyroxine 75 mcg capsule 75 mcg PO QDAY Referrals: Kwabena([facility])Drew NP [Primary Care Provider] - In 1 week Problem List Clinical Impression: Chest pain of unknown etiology, Palpitation, Urinary tract infection Patient/Caregiver Discharge Instructions Education Materials: Understanding Urinary Tract ..., ED Chest Pain, Uncertain Cause, ED Palpitations Additional Instructions: Follow-up with your primary care physician in 2 days for reevaluation and to be referred to vendor management specialist for further evaluation and treatment of chest pain palpitation for possible echocardiogram stress test and Holter monitor persistent recurrence worsening symptoms or any emergent concern call 911 or go to the nearest emergency room keep hydrated finish the course of antibiotic Print Language: Ma[place] Stand Alone Forms: Monae Award Info., Patient Portal Info Letter PA/ACCOUNT TECHNICIAN Supervising Physician PA/ACCOUNT TECHNICIAN Supervising Physician: Dr contreras
== END 2025-03-19 22:18 | disposition home or self-care (01) ==
PROVIDERS: Nurse Practitioner Family; Emergency Provider Emergency Medicine; PCP Nurse Practitioner Family
DX: R07.9 Chest pain, unspecified (principal); N39.0 Urinary tract infection, site not specified; R00.2 Palpitations; R94.31 Abnormal electrocardiogram [ECG] [EKG]
CPT/HCPCS: 36415; 71045; 80053; 81001; 81025; 83880; 84443; 84484; 85025; 93005; 99284

== ENCOUNTER → 2025-06-15 | Outpatient (CLI) | payer MEDICAID, SELFPAY ==
--- NOTE | 2025-06-15 09:15 | XR_ITS ---
Examination: Screening digital mammography, bilateral Computer aided detection 3-D breast Tomosynthesis, bilateral Date and time of exam: June 15, 2025, 0818 hours, compared to mammograms dating to April 23, 2023 Indication: Screening Technique: Nonmagnified MLO, CC views of the breasts to been obtained, reconstructed from 3-D Tomosynthesis images. R2 computer aided detection program utilized for evaluation of suspicious masses and/or abnormal calcifications. 3-D Tomosynthesis images obtained. Findings: The breasts are heterogeneously dense, which may obscure small masses Benign calcifications. No interval suspicious masses Impression: BI-RADS category II: Benign Findings. Recommend 1 year follow-up mammogram. Given the focal asymmetries on prior studies, recommend repeat bilateral breast sonography follow-up
== END | disposition home or self-care (01) ==
LOC: CDIM 08:09
PROVIDERS: Referring Provider Nurse Practitioner Family; Visit Provider Nurse Practitioner Family
DX: Z12.31 Encounter for screening mammogram for malignant neoplasm of breast (principal); R92.323 Mammographic fibroglandular density, bilateral breasts; N64.89 Other specified disorders of breast
CPT/HCPCS: 77063; 77067

== ENCOUNTER → 2025-06-26 | Outpatient (BNVA) | payer MEDICAID, SELFPAY | END | disposition home or self-care (01) | PROVIDERS: PCP Nurse Practitioner Family; Referring Provider Nurse Practitioner Family; Visit Provider Urology | DX: R35.0 Frequency of micturition (principal); R33.9 Retention of urine, unspecified; N76.0 Acute vaginitis; M54.30 Sciatica, unspecified side; E66.9 Obesity, unspecified; Z68.37 Body mass index [BMI] 37.0-37.9, adult | CPT/HCPCS: 81003; 99212; G0463 ==

== ENCOUNTER → 2025-08-14 | Outpatient (CLI) | payer MEDICAID, SELFPAY ==
--- NOTE | 2025-08-14 14:30 | XR_ITS ---
Examination: Breast ultrasound complete, bilateral Date and time of exam: August 14, 2025, 1429 hours INDICATIONS: Right breast pain beginning 2 months ago Technique: Real-time grayscale ultrasonographic imaging bilateral breasts, including all 4 quadrants as well as nipple retroareolar and axillary regions. Findings: Sonographic images right breast 11:00 nodule 5 x 9 mm indistinct margins Sonographic images left breast No cystic or solid mass IMPRESSION: BI-RADS Category 4: Suspicious for malignancy Suspicious mass 11 o'clock position right breast, biopsy is needed to exclude breast carcinoma, this nodule is amenable to ultrasound-guided breast biopsy for diagnosis
== END | disposition home or self-care (01) ==
LOC: CDIM 14:12
PROVIDERS: PCP Nurse Practitioner Family; Referring Provider Nurse Practitioner Family; Visit Provider Nurse Practitioner Family
DX: N63.11 Unspecified lump in the right breast, upper outer quadrant (principal)
CPT/HCPCS: 76641

== ENCOUNTER → 2025-08-21 | Outpatient (CLI) | payer MEDICAID, SELFPAY ==
--- NOTE | 2025-08-21 | XR_ITS ---
EXAMINATION: Ankle, right 3 views. Technique: Ankle AP, oblique, lateral 3 views Date and time of exam: August 21, 2025, 1143 hours INDICATIONS: Injury to the ankle 10 days ago, ankle pain. FINDINGS: Moderate osteopenia No ankle fracture or dislocation IMPRESSION: No ankle fracture or dislocation
--- NOTE | 2025-08-21 | XR_ITS ---
Examination: Foot, right, 3 views Technique: AP, oblique, lateral views foot, 3 views Date and time of exam: August 21, 2025, 11:43 a.m. INDICATIONS: Injury to the foot 10 days ago, foot pain. FINDINGS: Mild osteopenia. Mild narrowing first metatarsophalangeal joint Mild bunion deformity No acute fracture No dislocation IMPRESSION: No acute fracture
== END | disposition home or self-care (01) ==
LOC: CDIM 10:48
PROVIDERS: PCP Nurse Practitioner Family; Referring Provider Nurse Practitioner Family; Visit Provider Nurse Practitioner Family
DX: S99.911A Unspecified injury of right ankle, initial encounter (principal); S99.921A Unspecified injury of right foot, initial encounter; X58.XXXA Exposure to other specified factors, initial encounter
CPT/HCPCS: 73610; 73630

== ENCOUNTER → 2025-08-24 | Outpatient (BNVA) | payer MEDICAID, SELFPAY | END | disposition home or self-care (01) | PROVIDERS: PCP Nurse Practitioner Family; Referring Provider Nurse Practitioner Family; Visit Provider Urology | DX: N35.92 Unspecified urethral stricture, female (principal); R10.20 Pelvic and perineal pain unspecified side; D41.4 Neoplasm of uncertain behavior of bladder | CPT/HCPCS: 52281; 96372; A4217; A4649; C1894; J1580; A9270 ==